=== PATIENT | male | born 1965 | race Caucasian/White ===

== ENCOUNTER 2020-04-07 00:20 | Observation (INO) | payer BC, SELFPAY ==
[2020-04-07] VITALS (88 sets, daily range): BP systolic 62–155; BP diastolic 37–114; PULSE 0–113; RESP 10–35; TEMP 36.2–37.2; O2SAT 76–100; BMI 32.8
--- NOTE | 2020-04-07 00:40 | PC.NURSE ---
Pt injected Papaverine 30mg/ml + Phentolamine 2mh/ml + Alprostadil 40mh/ml
[2020-04-07] MEDS: HYDROmorphone 1 mg/mL INJ 1 mL IM (01:59)
--- NOTE | 2020-04-07 02:09 | W.ED.GENADLT ---
Documented by User: KAYY Barkley 04/07/20 02:12 HPI - General Adult General: Chief complaint: General Medical Stated complaint: erection won't go away Time Seen by Provider: 04/07/20 00:38 History of Present Illness: HPI narrative: Patient comes in with priapism x24 hours patient self injected with a penile injection medicine that he got from a friend watch a video on how to do it and believe the video said to give 0.5 mL's and he gave himself 2 mL's at least if not more and so he is tried pseudoephedrine and Sudafed over the last 24 hours's from 60 to 120 mg to help reduce this he is tried ice and other means without any success he is in pain patient has a history of recent cardiac st[place] [facility] he is a smoker has hypertension takes medication for that MD complaint: Priapism Onset (ago): hour(s) (24) Associated symptoms: Reports no associated symptoms; Deny chest pain, dyspnea, headache(s), nausea, rash or vomiting Review of Systems Const: Denies: fever(s), chills or body aches Eyes: Denies: change in vision or blurry vision ENMT: Denies: throat pain or nasal congestion Card: Denies: chest pain or dyspnea on exertion Resp: Denies: dyspnea, productive cough or non-productive cough GI: Denies: abdominal pain, nausea or vomiting : Reports: difficulty urinating and other (Priapism x24 hours) Musc: Denies: extremity pain Skin/Breast: Denies: rash Neuro: Denies: headache(s) Psych: Denies: anxiety or depression Sahggy/Lymph: Denies: easy bruising PFSH ED PFSH: Medical History (Updated 04/08/20 @ 00:00 by ) Chronic anticoagulation Coronary artery disease Erectile dysfunction Hypertension Migraine aura without headache Tobacco abuse Surgical History Status post coronary artery stent placement Family History (Updated 04/07/20 @ 11:31 by Raeann Alvarado DO) Father CAD (coronary artery disease) Diabetes Hypertension Mother Diabetes CAD (coronary artery disease) Hypertension Social History (Updated 04/07/20 @ 11:32 by Raeann Alvarado DO) Smoking and tobacco status: current every day smoker cigarettes Number of cigarettes per day: 11-20 Alcohol intake: never Substance/Drug Use: never Marital status: Physical Exam Const: COMMON NORMALS: no acute distress, average body habitus and patient oriented x3 HENMT: COMMON NORMALS: normocephalic HEAD & SCALP: normal to inspection and normocephalic FACE & SINUS: normal facial exam Eye: COMMON NORMALS: conjunctivae normal GENERAL EYE: appearance normal, both eyes and all related structures CONJUNCTIVA: Yes conjunctivae normal Neck/C-Spine: COMMON NORMALS: no JVD Chest: COMMONS NORMALS: normal inspection of the chest Resp: COMMON NORMALS: normal respiratory effort and clear to auscultation bilaterally AUSCULTATION: clear to auscultation bilaterally Cardio: COMMON NORMALS: no JVD, regular rate and regular rhythm RATE: regular rate RHYTHM: regular rhythm GI: COMMON NORMALS: Normal to inspection, nondistended, normoactive bowel sounds present : PENIS: other (Penis is erectile color is normal is tender to the touch) Extremity: COMMON NORMALS: normal to inspection and full ROM Neuro: COMMON NORMALS: patient oriented x3 Course Vital Signs: Vital signs: Vital Signs Temperature 98.4 F 04/07/20 10:57 Pulse Rate 90 04/07/20 10:57 Respiratory Rate 18 04/07/20 10:57 Blood Pressure 120/78 04/07/20 10:57 Pulse Oximetry 93 04/07/20 10:30 MDM - General Adult MDM Narrative: Medical decision making narrative: Dr. Costello spoke with Dr. Gonzalez I recommend that we do 1 mg a phenylephrine in 9 cc normal saline and inject 1 mL every 10 minutes which we did x6 without any reduction in the priapism and Dr. Costello spoke with Dr. Gonzalez again Discharge Plan Discharge Patient Disposition: Admitted As Inpatient Admit Provider: Kiran Gonzalez Clinical Impression: Priapism Condition: Stable Discharge Orders: Discharge Order (Routine); Ordered 04/07/20 Ordered By: Kiran Gonzalez Discharge Diet: Advance as tolerated Discharge Activity: Resume usual activity Interventions: ED Discharge Assessment Last Done: 04/07/20 07:01 ED Charges Last Done: 04/07/20 03:53 Discharge Date/Time: 04/07/20 07:02 Coding Level of Care Code ED Marketing Automation Specialist for Chg Fwd Exam Comprehensive Documented by User: Sina Costello MD 04/13/20 13:35 HPI - General Adult General: Chief complaint: General Medical Stated complaint: erection won't go away Time Seen by Provider: 04/07/20 00:38 PFSH ED PFSH: Medical History (Updated 04/08/20 @ 00:00 by ) Chronic anticoagulation Coronary artery disease Erectile dysfunction Hypertension Migraine aura without headache Tobacco abuse Surgical History Status post coronary artery stent placement Family History (Updated 04/07/20 @ 11:31 by Raeann Alvarado DO) Father CAD (coronary artery disease) Diabetes Hypertension Mother Diabetes CAD (coronary artery disease) Hypertension Social History (Updated 04/07/20 @ 11:32 by Raeann Alvarado DO) Smoking and tobacco status: current every day smoker cigarettes Number of cigarettes per day: 11-20 Alcohol intake: never Substance/Drug Use: never Marital status: Procedures Penile Procedure Time Out Performed: Yes Indication: priapism management Procedural Sedation: Yes Priapism Management: aspiration and phenylephrine injection Patient Tolerated Procedure: well Additional Comments: Patient's penis was draped and iodine was used to clean the skin. Sterile procedure with gloves was performed. Did a dorsal penile block with 8 cc of bupivacaine 1% without epinephrine. 18-gauge needle was introduced into right and left cavernosa at 2oclock and 10 oclock position with roughly 80 mL's of blood returned. Injected 0.5 cc of phenylephrine incrementally every 5 minutes for a total of 2 cc tolerated procedure well with no complications Procedural Sedation Indication: other (priapism) ASA Class: I Time of Last PO Intake: 00:02 Preparation: gang hemstitching machine operator applied, pulse oximeter and supplemental O2 applied IV Propofol dose (mg): 100 Patient Tolerated Procedure: well Complications: none Course Vital Signs: Vital signs: Vital Signs Temperature 98.4 F 04/07/20 10:57 Pulse Rate 90 04/07/20 10:57 Respiratory Rate 18 04/07/20 10:57 Blood Pressure 120/78 04/07/20 10:57 Pulse Oximetry 93 04/07/20 10:30 MDM - General Adult MDM Narrative: Medical decision making narrative: 0200 phenylephrine did not work with resolving patient's preop is in. Spoke to Dr. Gonzalez and will attempt aspiration at this time. 0300 removed 80 mL's of blood during aspiration with needle at 10:00 and 2:00 positions. Did inject phenylephrine as well and has partial resolution at this time of his priapism will continue to monitor 0345 patient's erection has improved but still has not completely resolved. Will ice and reevaluate if full resolution is not achieved will consult urology. 0445 patient's correction continues have contacted Dr. Gonzalez who is going to come in to see the patient at this time. Discharge Plan Discharge Patient Disposition: Admitted As Inpatient Admit Provider: Kiran Gonzalez Clinical Impression: Priapism Condition: Stable Discharge Orders: Discharge Order (Routine); Ordered 04/07/20 Ordered By: Kiran Gonzalez Discharge Diet: Advance as tolerated Discharge Activity: Resume usual activity Interventions: ED Discharge Assessment Last Done: 04/07/20 07:01 ED Charges Last Done: 04/07/20 03:53 Discharge Date/Time: 04/07/20 07:02 Coding Level of Care Code ED Marketing Automation Specialist for Jocelyn Fwpriyanka Exam Comprehensive
[2020-04-07] MEDS: lidocaine 1% INJ 20 mL INTRADERMA (02:24)
[2020-04-07] MEDS: propofol 10 mg/mL SDV 20 mL 100 MG IVP (02:25)
[2020-04-07] MEDS: phenylephrine inj 25 MG in sodium chloride 0.9% 250 ML IV (03:26)
--- NOTE | 2020-04-07 03:42 | PC.NURSE ---
Addendum entered by Olegario Hodges 04/07/20 03:56: 0226 - Propofol 60 mg 0227 - Nerve block 10ml 0230 - Propofol 20mg Original Note: CONCIOUS SEDATION Time Out - 0224 0230 - VS BP - 100/71 HR - 104 O2 - 100 Respirations - 27 Patient awake, talking, joking thru procedure. 0230 - Propofol administered by Dr. Costello 0233 - 20 ml blood removed 0235 - VS BP 90/69 HR 107 O2 -99 Respirations - 13 0238 - 20 ml blood removed / 3ml Phenylephrine 0240 - VS HR - 102 O2 - 100 BPO 100/71 0241 - 20ml blood removed 0242 - Patient talking 0245 - 15 ml Phenylephrine 0245 - 20 ml blood removed 0245 - vs BP 109/76 HR - 99 O2 - 99 Respirations -109/73 0246 - 20 ml blood removed 0250 - 20 ml blood removed 0250 - vs BP 111/64 O2 - 96% HR - 99 Respirations -22 0250 - 20 ml blood removed 0252 - End procedure
--- NOTE | 2020-04-07 06:43 | PM.HP ---
Providers/Chief Complaint Admitting Physician: Lisa/ Urology Chief Complaint: erection won't go away History of Present Illness Mars Quiroga is a 54 year old male with a history of mild erectile dysfunction who utilized some friends Trimix injection and gave himself 2 mL's of that about 30 hours ago. Developed an erection that did not resolve. He presented to the emergency department last night with that complaint and was treated appropriately with intracorporeal injection that failed to improve the erection and was followed by intracorporeal aspiration and irrigation with some improvement but not resolution. On physical exam the phallus was still erect. He had typical bruising associated with intracorporeal procedures mentioned above. Pain was somewhat improved. Because of the duration and lack of response to more conservative management it was recommended that he proceed to surgical intervention with a Cole shunt. I explained the procedure in detail. We also discussed that based on the dose that he used, the duration of erection prior to intervention, and his underlying erectile dysfunction at baseline that it is very likely that he will have a much worsened erectile function picture after this whole process resolved. We also reviewed that occasionally a Winter shunt would not be enough and will need to be followed by a direct corporal cavernosal to corporal spongiosa fistula. He gave informed consent to proceed. Review of Systems General: Reports: 10 or more systems reviewed and unremarkable except in HPI and below Shaggy/Lymph: Reports: other (Does have bruising of the phallus related to the intracorporeal procedures.) Medications/Allergies Home Medications Medication Instructions Recorded Confirmed Last Taken Type aspirin [Adult Low Dose Aspirin] 81 mg PO DAILY 04/07/20 04/07/20 1 Day Ago History ~04/06/20 lisinopril 04/07/20 1 Day Ago History ~04/06/20 meloxicam 04/07/20 1 Day Ago History ~04/06/20 metoprolol succinate PO 04/07/20 1 Day Ago History ~04/06/20 omeprazole 04/07/20 1 Year Ago History ~04/07/19 tamsulosin mg PO 04/07/20 1 Day Ago History ~04/06/20 Allergies Allergy/AdvReac Type Severity Reaction Status Date / Time No Known Allergies Allergy Verified 04/07/20 00:35 PFSH Acute PFSH: Medical History (Updated 04/07/20 @ 06:53 by Kiran Gonzalez MD) Chronic anticoagulation Coronary artery disease Erectile dysfunction Hypertension Migraine aura without headache Surgical History (Updated 04/07/20 @ 06:49 by Kiran Gonzalez MD) Status post coronary artery stent placement Family History (Updated 04/07/20 @ 06:53 by Kiran Gonzalez MD) Other CAD (coronary artery disease) Diabetes Hypertension Social History (Updated 04/07/20 @ 06:53 by Kiran Gonzalez MD) Smoking and tobacco status: current every day smoker Marital status: Vitals/I&O/Wt Last Vital Signs Temp 98.9 F 04/07/20 00:27 Pulse 86 04/07/20 04:35 Resp 15 04/07/20 04:35 BP 125/68 04/07/20 04:35 Pulse Ox 81 L 04/07/20 04:35 Weight last 48 hrs Weight 235 lb Physical Exam Const: COMMON NORMALS: no acute distress, alert and well nourished GENERAL APPEARANCE: well kempt and well developed ORIENTATION/CONSCIOUSNESS: not confused HENMT: HEAD & SCALP: normocephalic and atraumatic Eye: COMMON NORMALS: conjunctivae normal and no scleral icterus Neck/C-Spine: COMMON NORMALS: full ROM GENERAL: Yes normal visual inspection Resp: COMMON NORMALS: normal respiratory effort EFFORT & INSPECTION: No labored and No Actively coughing GI: COMMON NORMALS: Soft to palpation and non-tender PALPATION: Yes Soft to palpation and No Tenderness to palpation present (GI) : MALE GROIN/PERINEUM EXAM: No ecchymosis PENIS: other (Priapism, moderate to severe bruising related to procedures, normal meatus, glans penis etc.) MEATUS: meatus normal, no meatla discharge and No Blood at meatus present SCROTUM: Yes testes descended bilaterally, No edematous and No scrotal swelling TESTES: No absent testicle, No testicular tenderness, No testicular mass and No epididymal tenderness Extremity: COMMON NORMALS: no clubbing, cyanosis or edema Neuro: COMMON NORMALS: no focal motor deficits SENSORIUM/ORIENTATION: Yes alert Psych: COMMON NORMALS: mental status grossly normal APPEARANCE: Yes grossly normal and Yes well kempt ATTITUDE: Yes calm and Yes engaged Skin: COMMON NORMALS: no rashes or lesions noted and no jaundice A&P Assessment and plan (1) Priapism: 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 Failed conservative management with intracorporal, aspiration, injection etc. Recommended emergency COLE SHUNT. Status: Acute (2) Hypertension: Chronic hypertension. Status: Acute (3) Coronary artery disease: Status post coronary artery stenting about 5 weeks ago. He thinks he is doing well from that perspective Status: Acute Attestations Medical Necessity Statement*: Require surgical intervention. Will admit for observation postop for close monitoring. Coding Level of Care Code Acute Drawbench Operator Helper for Jocelyn Marroquin Diagnoses Priapism N48.30 Hypertension I10 Coronary artery disease I25.10
--- NOTE | 2020-04-07 06:49 | PC.NURSE ---
Pt undressed, all clothing and belongings were given to . Patient escorted to surgery.
--- NOTE | 2020-04-07 07:02 | PM.OP ---
Operative Report Date of procedure: April 07, 2020 Pre-op Diagnosis: Refractory priapism Post-op diagnosis: same Procedure Done: Cole shunt Pathology: none sent Surgeon: Lisa Anesthesia: General Estimated blood loss: <50 cc Urine output: Not measured Complications: None Findings: Multiple cores taken from the distal aspect of both corpora cavernosa with decompression with manual squeezing. Condition: stable Disposition: PACU Brief History: Mars is a 54-year-old white male who I evaluated for the first time today in the emergency department for refractory priapism of >30 hours duration. He has a history of mild erectile dysfunction but still could perform adequately. He apparently borrowed a friend's Trimix and gave himself approximately 20 times the average dose which yielded a very good erection that unfortunately became priapism. Attempts at management via intracorporal aspiration, irrigation and injection were unsuccessful in the emergency department. He is admitted to surgery emergently for priapism procedure (Cole shunt). We reviewed in detail the likelihood that his erectile dysfunction will be significantly worse following a 30-hour plus priapism episode. Procedure: After emergent evaluation examination and obtaining of informed consent he was taken to the operating suite on 04/07/2020 where general anesthesia was administered without difficulty. Prepped and draped in usual sterile fashion in supine position. The phallus was again inspected and priapism was confirmed. A small puncture incision on the dorsal aspect of the glans penis was performed and a Hugo-Cut biopsy (14-gauge) needle was utilized to make multiple punctures in the distal aspect of each corporal cavernosal body. This allowed expression of the retained blood in the corporal cavernosum bilaterally with decompression of the penis. After confirmation decompression the wound was closed with a 3-0 chromic and a light compressive dressing was applied and he was awakened in the operating room and returned to the care of room in stable condition. PLANS: 1. Admit for observation 2. Manual squeezing of the phallus at least every hour for maintenance of fistula patency. 3. Close observation and if recurrence consideration of a direct cavernosal spongiosum shunt.
--- NOTE | 2020-04-07 07:16 | ANES.PREANE2 ---
Pre-Anesthetic Assessment Pre-Anesthetic Assessment: Height/Weight: Height 1.8 m Weight 106.594 kg Temp Pulse Resp BP Pulse Ox 98.9 F 87 20 H 140/64 96 04/07/20 00:27 04/07/20 06:40 04/07/20 06:40 04/07/20 05:20 04/07/20 05:55 Preop Diagnosis: Refractory priapism Proposed Procedure: Operation Date: 04/07/20 07:00 Proposed Procedures p Winter's Shunt(Not Applicable) - Kiran Gonzalez MD Was Beta Katy taken within 24 hours: N/A (Last Dose of Metoprolol greater than 24 hours) Social: Social History: Alcohol and Tobacco Exam: Pre-Anes Outpt Exam: alert, oriented x 3, clear to auscultation bilaterally and regular rate & rhythm Airway: Submandibular: WNL Cervical ROM: WNL MP: 1 Dentition: False Pulmonary: Pulmonary: Cough Comments: Smoker CV/HEM: CV/HEM: Angina (Stable), CAD and HTN : : None reported Hepatic: Hepatic: None reported GI: GI: None reported Metabolic: Metabolic: DM Musc/skel: Musc/skel: None reported Neuropsych: Neuropsych: None reported Anesthetic Plan: ASA status: 3E Anesthesia: General Risk of > 500 ml blood loss (7ml/kg in children): No Meds/Allergies Current Medications: Current Medications Generic Name Dose Route Start Last Admin Trade Name Freq PRN Reason Stop Dose Admin Phenylephrine HCl 25 mg/ 252.5 mls @ 0 mls /hr 04/07/20 00:45 04/07/20 03:26 Sodium Chloride IV 1.65 mcg/min .Q0M KERMIT 1 mls/hr Administration Protocol Per Protocol PFSH Anesthesia PFSH: Medical History (Updated 04/07/20 @ 06:53 by Kiran Gonzalez MD) Chronic anticoagulation Coronary artery disease Erectile dysfunction Hypertension Migraine aura without headache Surgical History (Updated 04/07/20 @ 06:49 by Kiran Gonzalez MD) Status post coronary artery stent placement Family History (Updated 04/07/20 @ 06:53 by Kiran Gonzalez MD) Other CAD (coronary artery disease) Diabetes Hypertension Social History (Updated 04/07/20 @ 06:53 by Kiran Gonzalez MD) Smoking and tobacco status: current every day smoker Marital status: Data Anesthesia Cardiac Studies: No Data to Display
[2020-04-07] MEDS: neomycin-poly-bacitracin oint 28 gm 1 APPLIC TOPICAL (07:48)
--- NOTE | 2020-04-07 08:32 | ANE.PACU2 ---
Inpatient post-anesthesia follow up: Airway intact: Yes Vital signs: Temperature 97.1 F Pulse Rate [Monito r] 111 Pulse Rate 81 Respiratory Rate 29 Blood Pressure [Ri ght Arm] 155/103 Blood Pressure 106/55 Pulse Oximetry 95 Oxygen Delivery Me thod Nasal Cannula Oxygen Flow Rate 3 Fraction of Inspir ed Oxygen Hydration adequate: Yes Nausea and vomiting: No Pain level: 2 Mental status: Baseline Additional Comments: PPatient continued to be hypotensive and somnolent. Vigorous response to narcan and pressors. I suspect that the overdose of the injected ED med was the culprit. Patient is now awake and alert. Will check CBC and admit to floor for further care.
--- NOTE | 2020-04-07 08:53 | ECG_ITS ---
Measurements Intervals [place] Rate: 83 P: 35 ND: 191 QRS: -23 QRSD: 88 T: -55 QT: 382 QTc: 450 SINUS RHYTHM INFERIOR MYOCARDIAL INFARCTION [40+ ms Q WAVE AND/OR ST/T ABNORMALITY IN II/aVF], OF INDETERMINATE AGE MODERATE T-WAVE ABNORMALITY, CONSIDER LATERAL ISCHEMIA [-0.1+ mV T WAVE IN I/aVL/V5/V6] No previous ECG available for comparison Electronically Signed On 04-07-2020 19:34:15 CDT by Yazan Schwartz M.D. [email or web address]
--- NOTE | 2020-04-07 08:54 | SUR.PHASEI ---
0802 PT ASLEEP WITH ORAL AIRWAY IN PLACE BP LOW, HOB AT 30 MANUAL [address] LIFT PER DR CRYSTAL, JODI GIVEN PER ROOFER APPLICATOR, RESP WITH GOOD EFFORT. DRESSING TO PENIS D/I NO BLEEDING NOTED 0818 PT AWAKES ORAL AIRWAY OUT PER ROOFER APPLICATOR, PT ALERT SX ORALLY WITH SHAHRIAR, PT VERBALIZED APPROP.
[2020-04-07 08:56] LABS: Basophils # 0.1 10^3/uL (0.0-0.1); Basophils % 0.4 %; Eosinophils # 0.5 10^3/uL (0.0-0.8); Eosinophils % 3.7 %; Hematocrit 40.7 % (42.0-52.0); Hemoglobin 13.3 g/dL (11.7-16.6); Lymphocytes # 3.5 10^3/uL (0.8-4.8); Lymphocytes % 24.8 %; Mean Corpuscular HGB Conc 32.7 g/dL (30.0-36.0); Mean Corpuscular Hemoglobin 30.6 pg (28.0-34.0); Mean Corpuscular Volume 93.8 fL (80-94); Mean Platelet Volume 9.9 fL (7.4-10.4); Monocytes # 0.9 10^3/uL (0.2-0.9); Monocytes % 6.2 %; Neutrophils # 9.1 10^3/uL (1.8-7.7); Neutrophils % 64.6 %; Nucleated Red Blood Cells % 0 %; Platelet Count 250 10^3/cmm (130-400); Red Blood Count 4.34 10^6/uL (4.1-5.3); Red Cell Distribution Width 14.1 % (12.1-15.1); White Blood Count 14.1 10^3/uL (4.0-10.0)
--- NOTE | 2020-04-07 09:06 | SUR.PHASEI ---
0850 BLOOD DRAWN FROM RT HAND FOR CBC ORDERED PT NOW COMPLAINS OF HEAVINESS AND PAIN TO LT CHEST AREA, DR CRYSTAL NOTIFIED SEE ECG STRIP IN PACU 0855 EKG ORDERED NO MEDS GIVEN DUE TO PT HX OF HYPOTENSION IN OR AND PACU 09 DR CRYSTAL AT BEDSIDE PT STATES PAIN (IS BETTER BUT STILL THERE AND HE DOES THIS AT HOME SOMETIMES)
--- NOTE | 2020-04-07 09:48 | SUR.PHASEI ---
0917 EKG COMPLETED PT BP DOWN DR CRYSTAL AT BEDSIDE PHENLEPHRINE GTT STARTED AT SLOW RATE PER MICRO DRIP , BP BACK UP PT AWAKE ALERT REPORT CALLED TO ICU PT TO ICU ON MONITOR AND DR WITH RN IN TRANSPORT.
--- NOTE | 2020-04-07 10:13 | PC.NURSE ---
0930 recd from recover room. dressing d/i
--- NOTE | 2020-04-07 10:15 | XRR_ITS ---
PROCEDURE INFORMATION: Exam: XR Chest, 1 View Exam date and time: 04/07/2020 10:24 AM Age: 54 years old Clinical indication: Chest pain; Prior surgery; Surgery type: Stents TECHNIQUE: Imaging protocol: XR of the chest Views: 1 view. COMPARISON: No relevant prior studies available. FINDINGS: Lungs: Mild interstitial prominence without acute airspace disease. Pleural space: Mild pleural thickening. No dependent pleural effusion. Heart/Mediastinum: Cardiac silhouette upper limits of normal in size. Bones/joints: Unremarkable. XR/XR chest 1V portable [id number] IMPRESSION: No acute airspace or pleural disease.
[2020-04-07] MEDS: ticagrelor 90 mg Tablet PO (10:36)
[2020-04-07] MEDS: docusate sodium 100 mg Capsule PO (10:36)
[2020-04-07] MEDS: tamsulosin 0.4 mg Capsule PO (10:36)
[2020-04-07] MEDS: pantoprazole DR 40 mg Tablet PO (10:36)
[2020-04-07] MEDS: aspirin 81 mg EC Tablet PO (10:37)
[2020-04-07 11:01] LABS: Alanine Aminotransferase 34 U/L (0-41); Alkaline Phosphatase 114 IU/L (40-130); Anion Gap 18.3 (5-19); Aspartate Amino Transferase 22 U/L (0-40); Blood Urea Nitrogen 25 mg/dL (6-20); Calcium 9.8 mg/dL (8.5-10.5); Carbon Dioxide 21 mmol/L (22-29); Chloride 103 mmol/L (98-107); Globulin 2.3 g/dL (1.3-4.6); Glucose 122 mg/dL (65-115); Osmolality Calculated 284 mOsm/kg (285-295); Potassium 4.3 mmol/L (3.5-5.1); Sodium 138 mmol/L (136-145); Total Bilirubin 0.6 mg/dL (0.15-1.2); Total Protein 6.3 g/dL (6.6-8.7)
[2020-04-07 11:05] LABS: Troponin(5th) Baseline 20 ng/L (0-15)
--- NOTE | 2020-04-07 11:23 | P.CONIM_ITS ---
Providers/Reason For Consult Consulting Physican/Specialty*: Anesthesia, Dr. Harris Reason for Consult*: Medical management Attending Physician: Kiran Gonzalez MD History of Present Illness History of Present Illness Mars Quiroga is a 54 year old male with a past medical history of hypertension and coronary artery disease that presented to the emergency department for priapism. Patient reportedly injected Trimix, that was prescription of one of his friends. Patient developed an erection that did not resolve. Presented to the emergency department due to prolonged erection and pain. Patient was noted to take injection that is significantly higher than recommended dose. Patient was seen and evaluated in the emergency department and treated with intra-corporal injection that failed to improve the erection followed by intracorporeal aspiration and irrigation. Minor improvement but no resolution therefore Dr. Gonzalez, urologist, was consulted. Patient was taken to the OR for Winter shunt. Following procedure patient was noted to be hypotensive. Patient reported that he had had cardiac cath with stent placement to his LAD approximately 2 weeks ago at an outside facility, [place]. Patient stated that he did not take any of his medications last night, missed his dose of Brilinta. Patient developed chest pain in the postoperative setting therefore was moved to the ICU. Anesthesia provider consulted me for further evaluation. Patient was started on phenylephrine in the postoperative setting due to hypotension. At time of my evaluation in the ICU patient was noted to be normotensive, discussed with RN at bedside to decrease phenylephrine drip. Discussed that since patient missed dose of Brilinta will give dose of aspirin and Brilinta now and obtain records from outside facility of recent cardiac cath. Serial EKG and troponin ordered. Chest x-ray ordered. Patient reported that he is currently chest pain-free. Review of Systems Const: Denies: fever(s) or chills Eyes: Denies: change in vision ENMT: Denies: nasal congestion Card: Denies: chest pain, palpitations or edema Resp: Denies: dyspnea, productive cough or hemoptysis GI: Denies: abdominal pain, nausea, vomiting, diarrhea, constipation, hematochezia or melena : Reports: genital pain and other (Denies any dysuria or hematuria prior to this) Musc: Denies: extremity pain or muscle cramps Skin/Breast: Denies: rash or new lesions Neuro: Denies: headache(s) or dizziness Psych: Denies: anxiety or depression Endo: Denies: polyuria or hot flashes Shaggy/Lymph: Denies: easy bruising or easy bleeding Meds/Allergies Home Medications and Allergies Home Medications Medication Instructions Recorded Confirmed Last Taken Type aspirin [Adult Low Dose Aspirin] 81 mg PO DAILY 04/07/20 04/07/20 1 Day Ago History ~04/06/20 lisinopril 40 mg PO DAILY 04/07/20 04/07/20 1 Day Ago History ~04/06/20 meloxicam 15 mg PO DAILY 04/07/20 04/07/20 1 Day Ago History ~04/06/20 metoprolol succinate 25 mg PO DAILY 04/07/20 04/07/20 04/05/20 History omeprazole 20 mg PO DAILY 04/07/20 04/07/20 1 Year Ago History ~04/07/19 phenylephrine HCl [Sudafed PE] 60 mg PO Q6H 04/07/20 04/07/20 04/06/20 08:00 History phenylephrine HCl [Sudafed PE] 60 mg PO Q6H 04/07/20 04/07/20 04/06/20 18:00 History tamsulosin 0.4 mg PO DAILY 04/07/20 04/07/20 1 Day Ago History ~04/06/20 ticagrelor [Brilinta] 90 mg PO BID 04/07/20 04/07/20 04/05/20 History tramadol 50 mg PO PRN 04/07/20 04/07/20 04/06/20 History Allergies Allergy/AdvReac Type Severity Reaction Status Date / Time No Known Allergies Allergy Verified 04/07/20 07:02 Current Medications Current Medications Generic Name Dose Route Start Last Admin Trade Name Freq PRN Reason Stop Dose Admin Aspirin 81 mg 04/07/20 10:00 04/07/20 10:37 Aspirin Ec PO 81 mg DAILY KERMIT Administration Docusate Sodium 100 mg 04/07/20 09:47 04/07/20 10:36 Colace PO 100 mg BID KERMIT Administration Pantoprazole Sodium 40 mg 04/07/20 10:00 04/07/20 10:36 Protonix PO 40 mg DAILY KERMIT Administration Tamsulosin HCl 0.4 mg 04/07/20 10:00 04/07/20 10:36 Flomax PO 0.4 mg DAILY KERMIT Administration Ticagrelor 90 mg 04/07/20 11:00 04/07/20 10:36 Brilinta PO 90 mg BID KERMIT Administration PFSH Acute PFSH: Medical History (Updated 04/07/20 @ 11:31 by Raeann Alvarado DO) Chronic anticoagulation Coronary artery disease Erectile dysfunction Hypertension Migraine aura without headache Tobacco abuse Surgical History Status post coronary artery stent placement Family History (Updated 04/07/20 @ 11:31 by Raeann Alvarado DO) Father CAD (coronary artery disease) Diabetes Hypertension Mother Diabetes CAD (coronary artery disease) Hypertension Social History (Updated 04/07/20 @ 11:32 by Raeann Alvarado DO) Smoking and tobacco status: current every day smoker cigarettes Number of cigarettes per day: 11-20 Alcohol intake: never Substance/Drug Use: never Marital status: Vitals/I&O/Wt Last Vital Signs Temp 98.4 F 04/07/20 10:57 Pulse 90 04/07/20 10:57 Resp 18 04/07/20 10:57 BP 120/78 04/07/20 10:57 Pulse Ox 93 04/07/20 10:30 04/06/20 04/07/20 04/07/20 22:59 06:59 14:59 Intake Total 50 / 50 Output Total 25 / 25 Balance 25 / 25 Weight last 48 hrs Weight 106.594 kg Physical Exam Const: COMMON NORMALS: patient oriented x3 and alert GENERAL APPEARANCE: cooperative ORIENTATION/CONSCIOUSNESS: Yes awake, Yes oriented to person, Yes oriented to place and Yes oriented to time HENMT: COMMON NORMALS: normocephalic and atraumatic HEAD & SCALP: normocephalic and atraumatic Eye: COMMON NORMALS: Equal, round and reactive pupils present PUPIL: Yes Equal, round and reactive pupils present Neck/C-Spine: COMMON NORMALS: supple GENERAL: Yes normal visual inspection Resp: COMMON NORMALS: normal respiratory effort and clear to auscultation bilaterally EFFORT & INSPECTION: Yes able to speak in complete sentences AUSCULTATION: clear to auscultation bilaterally, no rhonchi and no wheezes Cardio: COMMON NORMALS: regular rate, regular rhythm and No murmurs present (Cardio) RATE: regular rate RHYTHM: regular rhythm GI: COMMON NORMALS: Soft to palpation and non-tender INSPECTION: No abdominal distension AUSCULTATION: Yes normoactive bowel sounds PALPATION: Yes Soft to palpation Extremity: COMMON NORMALS: no clubbing, cyanosis or edema and no calf tenderness Neuro: COMMON NORMALS: patient oriented x3, CN's II-XII intact bilaterally, moves all extremities and no focal motor deficits SENSORIUM/ORIENTATION: Yes alert, Yes oriented to person, Yes oriented to place and Yes oriented to time SPEECH: speech normal Psych: COMMON NORMALS: mental status grossly normal and cooperative Skin: COMMON NORMALS: no rashes or lesions noted GENERAL SKIN EXAM: no rashes or lesions noted A&P Assessment and plan (1) Priapism: Refractory priapism secondary to intracorporeal cavernosal injection of T rimix We will follow along with recommendations from Dr. Gonzalez Failed conservative management with intracorporeal aspiration and injection Patient postop setting from Winter shunt Status: Acute (2) Coronary artery disease: With episode of chest pain in the postoperative setting. Close monitoring on telemetry with serial EKG and troponin. Patient missed dose of Brilinta last night. Give dose of Brilinta and aspirin at this time. Does not appear that patient is on a statin, would recommend statin therapy due to coronary artery disease with recent stent placement. We will obtain records from [facility], patient reports cardiac cath with stent placement x2 approximately 2 weeks ago. He reports that they were in the big vessel likely LAD lesion, awaiting records. Currently chest pain-free Status: Acute (3) Hypertension: Hypotensive in the postoperative setting therefore will hold on lisinopril and beta-mariela at this time. Continue to wean off of phenylephrine drip as tolerated. Status: Acute Additional A&P Information Hypotensive: In the postoperative setting, likely related to medications and i njection of Trimix prior to admission. 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
[2020-04-07 11:56] LABS: Glucose Point of Care 125 mg/dL (70-110)
--- NOTE | 2020-04-07 12:25 | PC.NURSE ---
patient left AMA Patient left room fully dressed, and went outside of ICU, ELHAM Canas and Vito RN able to talk to patient in hallway and ask him to stop to sign AMA form. Patient is agreeable to sign, and states I can take care of myself. If my cant stay, Im not staying either. This nurse discussed risk of leaving and importance of staying in the hospital. He verbalized understanding and says he still wants to leave. Instructed to follow up with PCP christina. Bilateral IV lines removed. RU signed, Vito walked patient to ER exit. Dr. Gonzalez and Dr. Alvarado notified.
--- NOTE | 2020-04-07 13:00 | PC.NURSE ---
1000. when recd. from r.r. noted bruising around penis, dressig to penis d/i
--- NOTE | 2020-04-07 18:10 | P.DS_ITS ---
Discharge Providers Date of Admission: 04/07/20 08:45 Date of Discharge: April 07, 2020 Attending Provider at Admission: Kiran Gonzalez MD Attending Provider at Discharge: Kiran Gonzalez MD Consults: Dr. Alvarado, hospitalist Diagnoses at Discharge Discharge Diagnosis (1) Priapism: Status: Acute (2) Coronary artery disease: Status: Acute (3) Hypertension: Status: Acute Reason for Visit Reason for Visit: erection won't go away Hospital Course Hospital Course: Patient presented to the hospital with >24 hours of priapism. It occurred after injecting the vasoactive Trimix substance that he received from a friend who used it by prescription for erectile dysfunction. Patient reports that he had some mild erectile dysfunction. Unfortunately he had not been trained in its appropriate use and selected 2 mL of Trimix for injection which is effectively about 20 times the normal dose. He was evaluated in the emergency department and appropriate conservative measures were initiated including intra-cavernosa injection of phenylephrine solution without significant effect. He then underwent aspiration and irrigation which improved the erection somewhat but did not resolve. Upon my evaluation he still had a rigid erection and given the duration of time recommended therefore proceeding emergently to the operating room for a Cole shunt. The procedure went well with multiple cores taken on the distal aspect of each corpora cavernosa. This led to immediate and appropriate detumescence. The skin was sealed with a horizontal mattress chromic suture x2. Orders were written for hourly squeezing keep the shunts patent. In the recovery room he was having some mild hypotension and for that reason was transported to the ICU rather than the floor for closer observation in the hospital service was evaluated. He responded well to conservative management including holding his antihypertensive medications and the weaning off of phenylephrine. There was no evidence of sepsis. The plan was to observe him overnight, encourage frequent squeezing of the penis to maintain shunt patency, and if the priapism did not recur then sent home tomorrow. Unfortunately the patient decided that he did not want to stay in the hospital and without really informing the staff left AMA. He apparently did say to them on his way out that if his could not stay he did not want to be in the hospital. Physical Exam Narrative: EXAM NARRATIVE: Will I did not see him shortly before his discharge he was reportedly alert oriented and in no acute distress. I did examine him in the PACU postoperatively and the shunts appear to be working fine with squeezing of the penis. Discharge Data Data Completed and Pending: Completed Studies During Hospitalization Category Date Time Status XR chest 1V celmentina ble 45714 Urgent Exams 04/07/20 10:15 Completed Labs from last 24 hours 04/07/20 04/07/20 04/07/20 10:42 10:27 10:27 WBC RBC Hgb Hct MCV MCH MCHC RDW Plt Count MPV Neut % (Auto) Lymph % (Auto) [place] % (Auto) Eos % (Auto) Baso % (Auto) Neut # (Auto) Lymph # (Auto) [place] # (Auto) Eos # (Auto) Baso # (Auto) Nucleated RBC % (a uto) Nucleated RBCs # Sodium 138 Potassium 4.3 Chloride 103 Carbon Dioxide 21 L Anion Gap 18.3 BUN 25 H Creatinine 1.5 H GFR Calculation 49.0 L Glucose 122 H POC Glucose 125 Calculated Osmolal ity 284 L Calcium 9.8 Total Bilirubin 0.6 AST 22 ALT 34 Alkaline Phosphata se 114 Troponin T Baselin e 20 H Total Protein 6.3 L Albumin 4.0 Globulin 2.3 04/07/20 08:48 WBC 14.1 H RBC 4.34 Hgb 13.3 Hct 40.7 L MCV 93.8 MCH 30.6 MCHC 32.7 RDW 14.1 Plt Count 250 MPV 9.9 Neut % (Auto) 64.6 Lymph % (Auto) 24.8 [place] % (Auto) 6.2 Eos % (Auto) 3.7 Baso % (Auto) 0.4 Neut # (Auto) 9.1 H Lymph # (Auto) 3.5 [place] # (Auto) 0.9 Eos # (Auto) 0.5 Baso # (Auto) 0.1 Nucleated RBC % (a uto) 0 Nucleated RBCs # 0.0 Sodium Potassium Chloride Carbon Dioxide Anion Gap BUN Creatinine GFR Calculation Glucose POC Glucose Calculated Osmolal ity Calcium Total Bilirubin AST ALT Alkaline Phosphata se Troponin T Baselin e Total Protein Albumin Globulin Vitals: Last Vital Signs Temp 98.4 F 04/07/20 10:57 Pulse 90 04/07/20 10:57 Resp 18 04/07/20 10:57 BP 120/78 04/07/20 10:57 Pulse Ox 93 04/07/20 10:30 Discharge Plan Discharge Patient Disposition: Home, Self-Care Condition: Stable Prescriptions: No Action lisinopril 40 mg tablet 40 mg PO DAILY RF: 0 meloxicam 15 mg tablet 15 mg PO DAILY RF: 0 metoprolol succinate 25 mg tablet extended release 24 hr 25 mg PO DAILY RF: 0 omeprazole 20 mg capsule,delayed release(DR/EC) 20 mg PO DAILY RF: 0 tamsulosin 0.4 mg capsule 0.4 mg PO DAILY RF: 0 Adult Low Dose Aspirin 81 mg Tablet,Delayed Release (Dr/Ec) 81 mg PO DAILY RF: 0 Sudafed PE 10 mg Tablet 60 mg PO Q6H RF: 0 Sudafed PE 10 mg Tablet 60 mg PO Q6H RF: 0 Brilinta 90 mg tablet 90 mg PO BID RF: 0 tramadol 50 mg Tablet 50 mg PO PRN RF: 0 Discharge Orders: Discharge Order (Routine); Ordered 04/07/20 Ordered By: Kiran Gonzalez Discharge Diet: Advance as tolerated Discharge Activity: Resume usual activity Patient Instructions: Priapism (ED) Activity Restrictions/Additional Instructions: Patient left AMA prior to being reevaluated by myself or by the hospitalist Dr. Alvarado. I have called both he and his 's number but have not been able to reach them. There is no voicemail box set up on their phones. We will continue to try to reach them for follow-up planning. 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
--- NOTE | 2020-04-08 16:24 | PC.RESP ---
SMOKING CESSATION AND PULMONARY REHAB INFORMATION SENT TO PATIENT.
== END 2020-04-07 12:20 | disposition home or self-care (01) ==
LOC: ER 06:40 → OPS 07:01 → MEDSURG 08:45 → ICU 09:36
PROVIDERS: Anesthesiology; Family Medicine; Admitting Provider Urology; Emergency Provider Nurse Practitioner Family; Visit Provider Urology
PROC: (CPT 54435; principal; 2020-04-07 07:00)
DX: N48.39 Other priapism (principal); I10 Essential (primary) hypertension; I25.10 Atherosclerotic heart disease of native coronary artery without angina pectoris; Z53.29 Procedure and treatment not carried out because of patient's decision for other reasons; Z79.82 Long term (current) use of aspirin; F17.210 Nicotine dependence, cigarettes, uncomplicated; Z82.49 Family history of ischemic heart disease and other diseases of the circulatory system; Z83.3 Family history of diabetes mellitus; E11.9 Type 2 diabetes mellitus without complications
CPT/HCPCS: 54435; 12345; 36415; 36416; 54220; 71045; 80053; 82962; 84484; 85025; 93005; 96365; 96372; 96375; 99284; 99285; G0378; J0171; J0330; J0690; J1170; J2001; J2250; J2370; J2405; J2704; J3010; J3490; J7050